=== PATIENT | male | born 1970 | race Caucasian/White ===

== ENCOUNTER 2018-12-13 12:13 | Outpatient (CLI) | payer OTHER, BC | END 2018-12-13 12:14 | disposition home or self-care (01) | DRG 950 | LOC: CONVCARE 12:13 | PROVIDERS: ATTEND Orthopaedic Surgery | DX: Z48.89 Encounter for other specified surgical aftercare (principal); Z98.890 Other specified postprocedural states | CPT/HCPCS: 73030 ==